=== PATIENT | female | born 1975 | race Caucasian/White ===

== ENCOUNTER 2020-03-04 11:25 | Inpatient (IN) ==
[2020-03-04] MEDS ORDERED: 0.9 % Sodium Chloride 1,000 ML IVC ONE ×3 (12:13→17:00)
[2020-03-04] MEDS ORDERED: Ondansetron 4 MG/2 ML VIAL IVP ONE ×2 (12:13→14:46)
[2020-03-04] MEDS ORDERED: *HR* FentaNYL (PF) 100 MCG/2 ML VIAL IVP STA (12:13)
[2020-03-04] MEDS ORDERED: Isovue-370 500 ML BOTTLE IVP ONE (12:13)
[2020-03-04 12:27] LABS: Basophils % 0.1 %; Eosinophils % 0.3 %; Hematocrit 42.4 % (35.3-44.9); Hemoglobin 13.3 g/dL (11.5-15.4); Immature Granulocytes % 0.4 % (0-4); Lymphocytes # 0.7 K/mcL (0.6-4.6); Lymphocytes % 5.3 %; Mean Corpuscular HGB Conc 31.4 g/dL (31.6-35.5); Mean Corpuscular Volume 92.4 fL (83.0-100.0); Mean Platelet Volume 10.6 fL (9.4-12.4); Monocytes # 0.8 K/mcL (0.0-1.3); Monocytes % 5.9 %; Neutrophils # 12.3 K/mcL (1.6-8.9); Platelet Count 328 K/mcL (140-400); Red Blood Count 4.59 M/mcL (3.82-4.97); Red Cell Distribution Width 13.2 % (11.5-14.5)
[2020-03-04 12:30] LABS: Bacteria,Urine Few per hpf (None-Few); Bilirubin,Urine Moderate (Negative); Blood,Urine Moderate (Negative); Clarity,Urine Turbid (Clear); Color,Urine Dark-Yellow (Yellow); Glucose,Urine (UA) Normal (Normal); Ketones,Urine 20 mg/dL (Negative); Leukocyte Esterase,Urine Small (Negative); Mucus,Urine Many per lpf (None-Few); Nitrite,Urine Negative (Negative); PH,Urine 5.5 pH Units (5.0-8.0); Protein,Urine 70 mg/dL (Neg-Trace); Specific Gravity,Urine 1.025 (1.010-1.025); Squamous Epithelial Cell,Urine Moderate per hpf (None-Few); WBC,Urine 15-30 per hpf (0-3)
[2020-03-04 12:35] LABS: INR 1.1
[2020-03-04] MEDS ORDERED: cefTRIAXone 1,000 MG in 0.9 % Sodium Chloride Mini Bag 100 ML IVPB ONE (12:52)
[2020-03-04 13:03] LABS: Alanine Aminotransferase 391 Units/L (7-52); Albumin 4.1 g/dL (3.5-5.7); Albumin/Globulin Ratio 1.4 (1.1-2.2); Alkaline Phosphatase 134 Units/L (34-104); Amylase > 2000 Units/L (29-103); Aspartate Amino Transferase 161 Units/L (13-39); BUN/Creatinine Ratio 16 (6-26); Bilirubin,Direct 3.7 mg/dL (0.0-0.2); Bilirubin,Indirect 1.8 mg/dL (0.0-1.0); Bilirubin,Total 5.5 mg/dL (0.3-1.0); Blood Urea Nitrogen 12 mg/dL (6-20); Carbon Dioxide 27 mEq/L (23-29); Chloride 105 mEq/L (98-107); Globulin 2.9 g/dL (2.4-3.5); Glucose 189 mg/dL (70-105); Lipase > 1800 Units/L (11-82); Osmolality,Calculated 293 (280-300); Potassium 3.5 mEq/L (3.5-5.1); Sodium 139 mEq/L (136-145); eGFR For African Americans > 60 (> 60); eGFR For Non-African Americans > 60 (> 60)
[2020-03-04 13:22] LABS: Activated Partial Thrombo Time 27.2 Seconds (26.0-36.0)
[2020-03-04] MEDS ORDERED: *HR* HYDROmorphone (PF) 1 MG/ML SYRINGE IVP STA (14:46)
[2020-03-04] MEDS ORDERED: 0.9 % Sodium Chloride 1,000 ML IVC SCH (15:00)
[2020-03-04] MEDS ORDERED: Ondansetron 4 MG/2 ML VIAL IVP PRN (15:18)
[2020-03-04] MEDS ORDERED: Naloxone 0.4 MG/ML INJ IVP PRN (15:18)
[2020-03-04] MEDS: Piperacillin/Tazobactam 3.375 GM in 0.9 % Sodium Chloride Mini Bag 100 ML IVPB SCH (17:54)
[2020-03-04] MEDS ORDERED: *HR* HYDROmorphone PF 0.5 MG/0.5 ML SYRINGE IVP PRN (18:38)
[2020-03-04] MEDS: 0.9 % Sodium Chloride 1,000 ML IVC SCH ×2 (21:06→22:28)
[2020-03-05] MEDS: Piperacillin/Tazobactam 3.375 GM in 0.9 % Sodium Chloride Mini Bag 100 ML IVPB SCH ×3 (01:02→15:41)
[2020-03-05] MEDS: 0.9 % Sodium Chloride 1,000 ML IVC SCH ×2 (02:35→22:37)
[2020-03-05] MEDS ORDERED: *HR* Propofol 200 MG/20 ML VIAL IVP ONE (08:13)
[2020-03-05] MEDS ORDERED: Lidocaine -MPF 2% 2 ML VIAL ONE (08:14)
[2020-03-05] MEDS ORDERED: *HR* FentaNYL (PF) 100 MCG/2 ML VIAL ONE (08:14)
[2020-03-05] MEDS ORDERED: Ondansetron 4 MG/2 ML VIAL ONE (08:14)
[2020-03-05] MEDS ORDERED: *HR* Rocuronium Bromide 50 MG/5 ML VIAL ONE (08:14)
[2020-03-05] MEDS ORDERED: Dexamethasone 4 MG/ML VIAL ONE (08:14)
[2020-03-05] MEDS ORDERED: *HR* Midazolam HCl 2 MG/2 ML VIAL ONE (08:14)
[2020-03-05] MEDS ORDERED: *HR* Succinylcholine 200 MG/10 ML VIAL IVP ONE (08:14)
[2020-03-05] MEDS ORDERED: Lidocaine -MPF 4% 5 ML AMPUL ONE (08:22)
[2020-03-05 09:19] LABS: Basophils % 0.2 %; Eosinophils # 0.3 K/mcL (0.0-0.6); Eosinophils % 2.3 %; Hematocrit 36.6 % (35.3-44.9); Hemoglobin 11.9 g/dL (11.5-15.4); INR 1.2; Immature Granulocytes % 0.3 % (0-4); Lymphocytes # 1.1 K/mcL (0.6-4.6); Lymphocytes % 9.6 %; Mean Corpuscular HGB Conc 32.5 g/dL (31.6-35.5); Mean Corpuscular Hemoglobin 29.2 pg (28.0-33.3); Mean Corpuscular Volume 89.9 fL (83.0-100.0); Monocytes % 8.4 %; Neutrophils # 9.2 K/mcL (1.6-8.9); Platelet Count 278 K/mcL (140-400); Prothrombin Time 13.9 Seconds (9.4-12.1); Red Blood Count 4.07 M/mcL (3.82-4.97); Red Cell Distribution Width 13.5 % (11.5-14.5); Segmented Neutrophils % 79.2 %; White Blood Count 11.6 K/mcL (4.3-11.1)
[2020-03-05 09:35] LABS: Alanine Aminotransferase 425 Units/L (7-52); Albumin 3.3 g/dL (3.5-5.7); Albumin/Globulin Ratio 1.4 (1.1-2.2); Alkaline Phosphatase 122 Units/L (34-104); Aspartate Amino Transferase 202 Units/L (13-39); BUN/Creatinine Ratio 20 (6-26); Bilirubin,Direct 1.1 mg/dL (0.0-0.2); Bilirubin,Indirect 1.5 mg/dL (0.0-1.0); Bilirubin,Total 2.6 mg/dL (0.3-1.0); Blood Urea Nitrogen 11 mg/dL (6-20); Calcium 8.1 mg/dL (8.6-10.3); Carbon Dioxide 25 mEq/L (23-29); Chloride 110 mEq/L (98-107); Chol/HDL Ratio 4.6 (0-4.9); Cholesterol 147 mg/dL (< 200); Globulin 2.4 g/dL (2.4-3.5); Glucose 113 mg/dL (70-105); HDL Cholesterol 32 mg/dL (40-59); LDL Cholesterol,Calculated 101 mg/dL (< 100); Magnesium 1.6 mg/dL (1.6-2.6); Osmolality,Calculated 292 (280-300); Potassium 2.9 mEq/L (3.5-5.1); Sodium 141 mEq/L (136-145); Total Protein 5.7 g/dL (6.4-8.9); Triglycerides 70 mg/dL (< 150); eGFR For African Americans > 60 (> 60); eGFR For Non-African Americans > 60 (> 60)
[2020-03-05 11:06] LABS: Estimated Average Glucose 114 mg/dl; Hemoglobin A1C 5.6 %
[2020-03-05] MEDS ORDERED: Acetaminophen 325 MG TABLET PO PRN (14:25)
[2020-03-05] MEDS ORDERED: Ondansetron 4 MG/2 ML VIAL IVP PRN (14:32)
[2020-03-05] MEDS ORDERED: *HR* HYDROmorphone PF 0.5 MG/0.5 ML SYRINGE IVP PRN (14:32)
[2020-03-05] MEDS ORDERED: 0.9 % Sodium Chloride 1,000 ML IVC SCH (14:32)
[2020-03-05] MEDS: amLODIPine 5 MG TABLET PO SCH (17:09)
[2020-03-06] MEDS: Piperacillin/Tazobactam 3.375 GM in 0.9 % Sodium Chloride Mini Bag 100 ML IVPB SCH ×3 (00:32→15:20)
[2020-03-06 03:10] LABS: Basophils % 0.4 %; Eosinophils # 0.6 K/mcL (0.0-0.6); Eosinophils % 5.2 %; Hematocrit 34.6 % (35.3-44.9); Hemoglobin 11.2 g/dL (11.5-15.4); Immature Granulocytes % 0.3 % (0-4); Lymphocytes # 1.4 K/mcL (0.6-4.6); Lymphocytes % 12.9 %; Mean Corpuscular HGB Conc 32.4 g/dL (31.6-35.5); Mean Corpuscular Volume 89.6 fL (83.0-100.0); Mean Platelet Volume 11.1 fL (9.4-12.4); Monocytes # 1.2 K/mcL (0.0-1.3); Monocytes % 11.2 %; Neutrophils # 7.5 K/mcL (1.6-8.9); Platelet Count 233 K/mcL (140-400); Red Blood Count 3.86 M/mcL (3.82-4.97); Red Cell Distribution Width 13.7 % (11.5-14.5); White Blood Count 10.7 K/mcL (4.3-11.1)
[2020-03-06 03:12] LABS: INR 1.3; Prothrombin Time 14.5 Seconds (9.4-12.1)
[2020-03-06 03:28] LABS: Alanine Aminotransferase 469 Units/L (7-52); Albumin 3.1 g/dL (3.5-5.7); Albumin/Globulin Ratio 1.3 (1.1-2.2); Alkaline Phosphatase 101 Units/L (34-104); Amylase 354 Units/L (29-103); Aspartate Amino Transferase 200 Units/L (13-39); BUN/Creatinine Ratio 13 (6-26); Bilirubin,Direct 0.9 mg/dL (0.0-0.2); Bilirubin,Indirect 1.1 mg/dL (0.0-1.0); Blood Urea Nitrogen 7 mg/dL (6-20); Calcium 7.8 mg/dL (8.6-10.3); Carbon Dioxide 25 mEq/L (23-29); Chloride 108 mEq/L (98-107); Globulin 2.4 g/dL (2.4-3.5); Glucose 101 mg/dL (70-105); Lipase 501 Units/L (11-82); Osmolality,Calculated 286 (280-300); Potassium 3.1 mEq/L (3.5-5.1); Sodium 139 mEq/L (136-145); Total Protein 5.5 g/dL (6.4-8.9); eGFR For African Americans > 60 (> 60); eGFR For Non-African Americans > 60 (> 60)
[2020-03-06] MEDS: amLODIPine 5 MG TABLET PO SCH (08:14)
[2020-03-06] MEDS: 0.9 % Sodium Chloride 1,000 ML IVC SCH ×3 (13:00→13:32)
[2020-03-06] MEDS ORDERED: Ondansetron 4 MG/2 ML VIAL IVP PRN ×2 (19:04→21:56)
[2020-03-06] MEDS ORDERED: *HR* HYDROmorphone PF 0.5 MG/0.5 ML SYRINGE IVP PRN ×2 (19:04→21:56)
[2020-03-06] MEDS ORDERED: Dexamethasone 4 MG/ML VIAL ONE (19:13)
[2020-03-06] MEDS ORDERED: *HR* FentaNYL (PF) 100 MCG/2 ML VIAL ONE (19:13)
[2020-03-06] MEDS ORDERED: Lidocaine -MPF 2% 2 ML VIAL ONE (19:13)
[2020-03-06] MEDS ORDERED: Ondansetron 4 MG/2 ML VIAL ONE (19:13)
[2020-03-06] MEDS ORDERED: *HR* Propofol 200 MG/20 ML VIAL IVP ONE ×2 (19:13→20:56)
[2020-03-06] MEDS ORDERED: *HR* Midazolam HCl 2 MG/2 ML VIAL ONE (19:13)
[2020-03-06] MEDS ORDERED: *HR* Rocuronium Bromide 50 MG/5 ML VIAL ONE (19:13)
[2020-03-06] MEDS ORDERED: Lidocaine HCL 4 ML Topical Solution (Laryng-O-Jet Kit Sterile Pak) TP ONE (19:16)
[2020-03-06] MEDS ORDERED: Bupivacaine/EPI 1:200k 0.25% 50 ML VIAL ONE (19:17)
[2020-03-06] MEDS ORDERED: Isovue-300 50ML VIAL ONE (19:17)
[2020-03-06] MEDS ORDERED: Famotidine 20 MG/2 ML VIAL ONE (19:18)
[2020-03-06] MEDS ORDERED: *HR* Succinylcholine 200 MG/10 ML VIAL IVP ONE (19:46)
[2020-03-06] MEDS ORDERED: Ringers Solution, Lactated 500 ML IVC ONE (21:13)
[2020-03-06] MEDS ORDERED: Naloxone 0.4 MG/ML INJ IVP PRN (21:56)
[2020-03-06] MEDS ORDERED: Acetaminophen 325 MG TABLET PO PRN (21:56)
[2020-03-06] MEDS ORDERED: Ringers Solution, Lactated 1,000 ML IVC SCH (21:56)
[2020-03-07 05:17] LABS: Basophils % 0.2 %; Eosinophils % 0.1 %; Hematocrit 34.4 % (35.3-44.9); Immature Granulocytes % 0.4 % (0-4); Lymphocytes # 0.6 K/mcL (0.6-4.6); Mean Corpuscular Hemoglobin 29.7 pg (28.0-33.3); Monocytes # 0.6 K/mcL (0.0-1.3); Monocytes % 4.8 %; Neutrophils # 10.4 K/mcL (1.6-8.9); Platelet Count 235 K/mcL (140-400); Red Cell Distribution Width 13.4 % (11.5-14.5); Segmented Neutrophils % 89.5 %; White Blood Count 11.6 K/mcL (4.3-11.1)
[2020-03-07 05:47] LABS: Alanine Aminotransferase 393 Units/L (7-52); Albumin 3.4 g/dL (3.5-5.7); Albumin/Globulin Ratio 1.3 (1.1-2.2); Alkaline Phosphatase 103 Units/L (34-104); Amylase 111 Units/L (29-103); Aspartate Amino Transferase 121 Units/L (13-39); BUN/Creatinine Ratio 16 (6-26); Bilirubin,Total 1.6 mg/dL (0.3-1.0); Blood Urea Nitrogen 9 mg/dL (6-20); Calcium 8.4 mg/dL (8.6-10.3); Carbon Dioxide 24 mEq/L (23-29); Chloride 106 mEq/L (98-107); Globulin 2.6 g/dL (2.4-3.5); Glucose 127 mg/dL (70-105); Lipase 86 Units/L (11-82); Osmolality,Calculated 286 (280-300); Potassium 3.6 mEq/L (3.5-5.1); Sodium 138 mEq/L (136-145); eGFR For African Americans > 60 (> 60); eGFR For Non-African Americans > 60 (> 60)
[2020-03-07] MEDS: 0.9 % Sodium Chloride 1,000 ML IVC SCH (06:52)
[2020-03-07 07:30] VITALS: BP 117/85
[2020-03-07] MEDS ORDERED: amLODIPine 5 MG TABLET PO SCH (09:00)
== END 2020-03-07 15:06 | disposition home or self-care (01) | DRG 419 ==
LOC: 3ANU 11:25 → EMEROOARM 11:25 → 3ANU 16:40 → SUATTDRO 03-05 14:28
PROVIDERS: ADMIT Internal Medicine; ATTEND Internal Medicine